=== PATIENT | male | born 1955 | race Caucasian/White ===

== ENCOUNTER 2016-11-13 11:55 | Inpatient (IN) | payer OTHER ==
[~2016-11-13] VITALS: Ht 198.1 cm; Wt 126.6 kg
[2016-11-13] VITALS (8 sets, daily range): BP systolic 114–142; BP diastolic 69–97; PULSE 77–131; RESP 16–20; TEMP 97.6–98.1; O2SAT 94–100
[~2016-11-13 11:55] MED LIST: ASPI81 PO; METF500 PO; METO50CR PO; TAB-TAB PO; WARF5TAB PO
[2016-11-13] MEDS ORDERED: DILTIAZEM HCL 25 MG/5 ML VIAL IV ONE (12:30)
[2016-11-13] MEDS ORDERED: SODIUM CHLORIDE 0.9% FLUSH 10 ML FLUSH IVF PRN (12:30)
--- NOTE | 2016-11-13 12:44 | PD ---
HPI Chief Complaint: Skin Problem Time Seen by Provider: 12:37 Travel History International Travel<30 days: No Contact w/Intl Traveler<30days: No Traveled to known affect area: No History of Present Illness HPI Patient is a 60-year-old male presenting to emergency Department for evaluation of possible osteomyelitis. Patient was sent by Dr. Boykin who has been following him due to infection to the right second toe, there is a concern for osteomyelitis and patient states Lucretia wanted an MRI. Over the weekend patient has had increased swelling and streaking up the dorsal aspect of the right foot with swelling to the ankle. Additionally patient was sent to have a defibrillator placed tomorrow with Dr. Boone. Patient denies any fever, chills, chest pain, shortness of breath. He has a history of atrial fibrillation, congestive heart failure, type 2 diabetes, neuropathy, GERD. He was on Coumadin but has been off for several days due to the upcoming surgery. He continues to take a baby aspirin. PFSH Past Medical History Hx Anticoagulant Therapy: Yes (Coumadin) Atrial Fibrillation: Yes Congestive Heart Failure: Yes Diabetes: Yes Patient Takes Glucophage: Yes Diminished Hearing: No GERD: Yes Hypertension: Yes Neurologic: Yes (peripheral neuropathy) Past Surgical History Abdominal Surgery: Yes (LEFT INGUINAL & UMBLICIAL HERNIA REPAIRS) Genitourinary Surgery: Yes (GROWTH ON RIGHT KIDNEY REMOVED) Social History Alcohol Use: Yes (OCC) Tobacco Use: Yes (CIGARS 0NCE IN AWHILE) Substance Use: No Allergies-Medications (Allergen,Severity, Reaction): Coded Allergies: No Known Allergies (Verified , 11/13/16) Reported Meds & Prescriptions Reported Meds & Active Scripts Active Reported Coumadin (Warfarin) 10 Mg Tab 10 Mg PO SUFR Coumadin (Warfarin) 7.5 Mg Tab 7.5 Mg PO MOTUWETHSA Omeprazole 10 Mg Cap 10 Mg PO DIRECTED PRN Isosorbide Mononitrate ER (Isosorbide Mononitrate) 30 Mg Liliana 30 Mg PO DAILY Entresto (Sacubitril-Valsartan) 24-26 Mg Tab 1 Tab PO BID Precose (Acarbose) 50 Mg Tab 50 Mg PO TID Take with first bite of meal. Glimepiride 4 Mg Tab 4 Mg PO DAILY Take with breakfast or first main meal Metformin (Metformin HCl) 500 Mg Tab 500 Mg PO TIDPC With meals Lasix (Furosemide) 20 Mg Tab 20 Mg PO TID Amiodarone (Amiodarone HCl) 200 Mg Tab 200 Mg PO DAILY Coreg (Carvedilol) 6.25 Mg Tab 6.25 Mg PO BID Aspirin 81 Mg Chew 81 Mg CHEW DAILY Review of Systems Except as stated in HPI: all other systems reviewed are Neg General / Constitutional: No: Fever, Chills HENT: No: Headaches Cardiovascular: Positive: Irregular Rhythm, Tachycardia, Edema, No: Chest Pain or Discomfort Respiratory: No: Shortness of Breath Gastrointestinal: No: Nausea, Vomiting, Abdominal Pain Musculoskeletal: Positive: Edema, Pain (right second toe) Skin: Positive Change in Pigmentation, Positive Lesions Neurologic: No: Weakness, Focal Abnormalities Physical Exam Narrative GENERAL: Well-developed, well-nourished, alert male. Resting comfortably in no acute distress. SKIN: Warm and dry. 2 cm ulceration to the right second toe pad, streaking to the dorsal aspect of the right foot 9 cm. Mild erythema noted to the medial aspect of the right ankle. HEAD: Atraumatic. Normocephalic. EYES: Pupils equal and round. No scleral icterus. No injection or drainage. ENT: No nasal bleeding or discharge. Mucous membranes pink and moist. NECK: Trachea midline. No JVD. CARDIOVASCULAR: Tachycardic, irregularly irregular RESPIRATORY: No accessory muscle use. Clear to auscultation. Breath sounds equal bilaterally. GASTROINTESTINAL: Abdomen soft, non-tender, nondistended. Hepatic and splenic margins not palpable. MUSCULOSKELETAL: Left extremity without clubbing, cyanosis, or edema. No obvious deformities. Right foot with trace edema to the dorsal aspect and ankle. 2+ dorsalis pedis pulses bilaterally. Right second toe does not ba. NEUROLOGICAL: Awake and alert. No obvious cranial nerve deficits. Motor grossly within normal limits. Five out of 5 muscle strength in the arms and legs. Normal speech. PSYCHIATRIC: Appropriate mood and affect; insight and judgment normal. Data Data Last Documented VS Vital Signs Date Time Temp Pulse Resp B/P Pulse Ox O2 Delivery O2 Flow Rate FiO2 11/13/16 12:59 77 16 126/85 96 Room Air 11/13/16 11:57 98.1 Orders Complete Blood Count With Diff (11/13/16 12:22) Comprehensive Metabolic Panel (11/13/16 12:22) B-Type Natriuretic Peptide (11/13/16 12:22) Prothrombin Time / Inr (Pt) (11/13/16 12:22) Magnesium (Mg) (11/13/16 12:22) Ckmb (Isoenzyme) Profile (11/13/16 12:22) Troponin I (11/13/16 12:22) Blood Culture (11/13/16 12:22) Iv Access Insert/Monitor (11/13/16 12:22) Electrocardiogram (11/13/16 12:22) Ecg Monitoring (11/13/16 12:22) Oximetry (11/13/16 12:22) Oxygen Administration (11/13/16 12:22) Sodium Chloride 0.9% Flush (Ns Flush) (11/13/16 12:30) Wound Culture And Gram Stain (11/13/16 12:22) Diltiazem Inj (Cardizem Inj) (11/13/16 12:30) C-Reactive Protein (Crp) (11/13/16 12:22) Westergren Sedimentation Rate (11/13/16 12:22) Mri Foot W&W/O Contrast (11/13/16 ) Vancomycin Inj (Vancomycin Inj) (11/13/16 14:30) Piperacil-Tazo 3.375 Gm Premix (Zosyn 3. (11/13/16 14:30) Gadodiamide Pf Inj (Omniscan Pf Inj) (11/13/16 14:36) Insulin Aspart Supplemtl Scale (Novolog (11/13/16 16:00) Admit Order (Ed Use Only) (11/13/16 14:48) Admit To Inpatient (11/13/16 ) Code Status (11/13/16 14:46) Vital Signs (Adult) Q4H (11/13/16 14:46) Activity Oob With Assistance (11/13/16 14:46) Diet 1800 Ada Cons Carb (11/13/16 Dinner) Sodium Chloride 0.9% Flush (Ns Flush) (11/13/16 15:00) Sodium Chloride 0.9% Flush (Ns Flush) (11/13/16 21:00) Acetaminophen (Tylenol) (11/13/16 15:00) Temazepam (Restoril) (11/13/16 15:00) Basic Metabolic Panel (Bmp) (11/14/16 06:00) Complete Blood Count With Diff (11/14/16 06:00) Chest, Single Ap (11/13/16 14:46) Electrocardiogram (11/13/16 14:46) Pt Request For Service (11/13/16 14:46) Scd Bilateral/Knee High ABEL.BID (11/13/16 14:46) Naloxone Inj (Narcan Inj) (11/13/16 15:00) Magnesium Hydroxide Liq (Milk Of Magnesi (11/13/16 15:00) Inpatient Certification (11/13/16 ) Labs Laboratory Tests Test 11/13/16 12:40 White Blood Count 6.5 TH/MM3 Red Blood Count 4.52 MIL/MM3 Hemoglobin 13.2 GM/DL Hematocrit 37.7 % Mean Corpuscular Volume 83.3 FL Mean Corpuscular Hemoglobin 29.3 PG Mean Corpuscular Hemoglobin 35.1 % Concent Red Cell Distribution Width 13.4 % Platelet Count 148 TH/MM3 Mean Platelet Volume 7.6 FL Neutrophils (%) (Auto) 65.3 % Lymphocytes (%) (Auto) 21.8 % Monocytes (%) (Auto) 7.7 % Eosinophils (%) (Auto) 4.4 % Basophils (%) (Auto) 0.8 % Neutrophils # (Auto) 4.2 TH/MM3 Lymphocytes # (Auto) 1.4 TH/MM3 Monocytes # (Auto) 0.5 TH/MM3 Eosinophils # (Auto) 0.3 TH/MM3 Basophils # (Auto) 0.1 TH/MM3 CBC Comment DIFF FINAL Differential Comment Erythrocyte Sedimentation Rate 19 mm/hr Prothrombin Time 29.1 SEC Prothromb Time International 2.5 RATIO Ratio Sodium Level 137 MEQ/L Potassium Level 3.9 MEQ/L Chloride Level 105 MEQ/L Carbon Dioxide Level 25.2 MEQ/L Anion Gap 7 MEQ/L Blood Urea Nitrogen 35 MG/DL Creatinine 1.08 MG/DL Estimat Glomerular Filtration 70 ML/MIN Rate Random Glucose 204 MG/DL Calcium Level 8.8 MG/DL Magnesium Level 1.6 MG/DL Total Bilirubin 0.7 MG/DL Aspartate Amino Transf 15 U/L (AST/SGOT) Alanine Aminotransferase 15 U/L (ALT/SGPT) Alkaline Phosphatase 73 U/L Total Creatine Kinase 63 U/L Troponin I 0.05 NG/ML C-Reactive Protein 1.10 MG/DL B-Type Natriuretic Peptide 142 PG/ML Total Protein 6.8 GM/DL Albumin 3.4 GM/DL MDM Medical Decision Making Medical Screen Exam Complete: Yes Emergency Medical Condition: Yes Medical Record Reviewed: Yes Interpretation(s) Laboratory Tests Test 11/13/16 12:40 White Blood Count 6.5 TH/MM3 Red Blood Count 4.52 MIL/MM3 Hemoglobin 13.2 GM/DL Hematocrit 37.7 % Mean Corpuscular Volume 83.3 FL Mean Corpuscular Hemoglobin 29.3 PG Mean Corpuscular Hemoglobin 35.1 % Concent Red Cell Distribution Width 13.4 % Platelet Count 148 TH/MM3 Mean Platelet Volume 7.6 FL Neutrophils (%) (Auto) 65.3 % Lymphocytes (%) (Auto) 21.8 % Monocytes (%) (Auto) 7.7 % Eosinophils (%) (Auto) 4.4 % Basophils (%) (Auto) 0.8 % Neutrophils # (Auto) 4.2 TH/MM3 Lymphocytes # (Auto) 1.4 TH/MM3 Monocytes # (Auto) 0.5 TH/MM3 Eosinophils # (Auto) 0.3 TH/MM3 Basophils # (Auto) 0.1 TH/MM3 CBC Comment DIFF FINAL Differential Comment Erythrocyte Sedimentation Rate 19 mm/hr Prothrombin Time 29.1 SEC Prothromb Time International 2.5 RATIO Ratio Sodium Level 137 MEQ/L Potassium Level 3.9 MEQ/L Chloride Level 105 MEQ/L Carbon Dioxide Level 25.2 MEQ/L Anion Gap 7 MEQ/L Blood Urea Nitrogen 35 MG/DL Creatinine 1.08 MG/DL Estimat Glomerular Filtration 70 ML/MIN Rate Random Glucose 204 MG/DL Calcium Level 8.8 MG/DL Magnesium Level 1.6 MG/DL Total Bilirubin 0.7 MG/DL Aspartate Amino Transf 15 U/L (AST/SGOT) Alanine Aminotransferase 15 U/L (ALT/SGPT) Alkaline Phosphatase 73 U/L Total Creatine Kinase 63 U/L Troponin I 0.05 NG/ML C-Reactive Protein 1.10 MG/DL B-Type Natriuretic Peptide 142 PG/ML Total Protein 6.8 GM/DL Albumin 3.4 GM/DL Vital Signs Date Time Temp Pulse Resp B/P Pulse Ox O2 Delivery O2 Flow Rate FiO2 11/13/16 11:57 98.1 131 16 114/81 97 Room Air Differential Diagnosis Sepsis versus osteomyelitis versus congestive heart failure versus A. fib with RVR versus metabolic abnormality versus other Narrative Course Patient is a 60-year-old male presenting on the advice of his recruitment coordinator for evaluation of possible osteomyelitis in the right second toe. Additionally patient is in A. fib with RVR with a rate of 123. Labs and imaging ordered and pending, Cardizem 20 mg IV 1 dose ordered. Rate was controlled after 1 dose of IV Cardizem. CBC is unremarkable on the sedimentation rate is 19 CRP 1.10, BNP 142 Troponin 0.05 CMP is otherwise unremarkable. MRI is pending, for healthcare patient for admission. Dr. Boykin requested patient receive vancomycin and Zosyn, orders placed. [facility] paged for admission. Dr. Sunshine accepted admit. He also spoke with Dr. Boykin as well as radiologist. Pt has confirmed Osteomyelitis. Admit orders placed. Diagnosis Primary Impression: Osteomyelitis Qualified Code: M86.9 - Osteomyelitis of other site, unspecified type Additional Impressions: Atrial fibrillation with RVR Diabetic ulcer of toe Qualified Code: E11.621 - Diabetic ulcer of toe of right foot associated with type 2 diabetes mellitus, unspecified ulcer stage Diabetes Qualified Code: E11.8 - Type 2 diabetes mellitus with complication, unspecified exterminator helper termite insulin use status HTN (hypertension) Qualified Code: I10 - Essential hypertension Admitting Information Admitting Physician Requests: Admit Condition: Stable Randee Griffith Nov 13, 2016 12:44
[2016-11-13 13:00] LABS: AUTOMATED NEUTROPHIL # 4.2 TH/MM3 (1.8-7.7); BASOPHIL # 0.1 TH/MM3 (0-0.2); BASOPHIL % 0.8 % (0.0-2.0); EOSINOPHIL # 0.3 TH/MM3 (0-0.4); EOSINOPHIL % 4.4 % (0.0-4.0); HEMATOCRIT 37.7 % (39.0-51.0); HEMO FLAGS DIFF FINAL; LYMPH % 21.8 % (9.0-44.0); LYMPHOCYTE # 1.4 TH/MM3 (1.0-4.8); MEAN CELL VOLUME 83.3 FL (80.0-100.0); MEAN CORPUSCULAR HEMOGLOBIN 29.3 PG (27.0-34.0); MEAN CORPUSCULAR HGB CONC 35.1 % (32.0-36.0); MONO % 7.7 % (0.0-8.0); NEUT % 65.3 % (16.0-70.0); PLATELET COUNT 148 TH/MM3 (150-450); RED BLOOD COUNT 4.52 MIL/MM3 (4.50-5.90); RED CELL DISTRIBUTION WIDTH 13.4 % (11.6-17.2); WHITE BLOOD COUNT 6.5 TH/MM3 (4.0-11.0)
[2016-11-13] MEDS ORDERED: CARV6.25 PO (13:06)
[2016-11-13] MEDS ORDERED: GLIM4TAB PO (13:06)
[2016-11-13] MEDS ORDERED: METF500T PO (13:06)
[2016-11-13] MEDS ORDERED: COUM7.5T PO (13:06)
[2016-11-13] MEDS ORDERED: PREC50TA PO (13:06)
[2016-11-13] MEDS ORDERED: AMIO200T PO (13:06)
[2016-11-13] MEDS ORDERED: OMEP10CA PO (13:06)
[2016-11-13] MEDS ORDERED: ASPI81CH CHEW (13:06)
[2016-11-13] MEDS ORDERED: ISOS30TA3 PO (13:06)
[2016-11-13] MEDS ORDERED: COUM10TA PO (13:06)
[2016-11-13] MEDS ORDERED: SACU1TAB PO (13:06)
[2016-11-13] MEDS ORDERED: FURO1TAB62 PO (13:06)
[2016-11-13 13:08] LABS: INTERNATIONAL NORMALIZED RATIO 2.5 RATIO; PROTHROMBIN TIME - PATIENT 29.1 SEC (9.8-11.6)
[2016-11-13 13:18] LABS: AST (GOT) 15 U/L (15-37); BICARBONATE 25.2 MEQ/L (21.0-32.0); BLOOD UREA NITROGEN 35 MG/DL (7-18); CHLORIDE 105 MEQ/L (98-107); GLOMERULAR FILTRATION RATE 70 ML/MIN (>89); MAGNESIUM 1.6 MG/DL (1.5-2.5); POTASSIUM 3.9 MEQ/L (3.5-5.1); SODIUM (NA) 137 MEQ/L (136-145)
[2016-11-13 13:19] LABS: ALT (GPT) 15 U/L (12-78); ANION GAP 7 MEQ/L (5-15)
[2016-11-13 13:22] LABS: ALKALINE PHOSPHATASE 73 U/L (45-117); TOTAL BILIRUBIN ADULT 0.7 MG/DL (0.2-1.0)
[2016-11-13 13:23] LABS: CREATINE KINASE 63 U/L (39-308)
[2016-11-13] MEDS ORDERED: VANCOMYCIN INJ 1,000 MG in SODIUM CHLOR 0.9% 250 ML INJ 250 ML IV ONE (14:30)
[2016-11-13] MEDS ORDERED: PIPERACIL-TAZO 3.375 GM PREMIX 50 ML IV ONE (14:30)
[2016-11-13] MEDS ORDERED: GADODIAMIDE PF 287 MG/ML 5 ML VIAL (for RAD MRI) IV ONE (14:36)
[2016-11-13] MEDS ORDERED: NALOXONE HCL 0.4 MG/ML AMP IV PRN (15:00)
[2016-11-13] MEDS ORDERED: MAGNESIUM HYDROXIDE SUSP 30 ML CUP PO PRN (15:00)
[2016-11-13] MEDS ORDERED: SODIUM CHLORIDE 0.9% FLUSH 10 ML FLUSH IV FLUSH PRN (15:00)
[2016-11-13] MEDS ORDERED: ACETAMINOPHEN 325 MG TAB PO PRN (15:00)
--- NOTE | 2016-11-13 15:16 | RADRPT ---
EXAM DATE/TIME: 11/13/2016 14:52 [facility] COMPARISON: No previous studies available for comparison. INDICATIONS : Osteomyelitis. CONTRAST: 25 cc Omniscan (gadodiamide) IV MEDICAL HISTORY : Diabetes mellitus type 2. CHF SURGICAL HISTORY : Hernia repair, knee surgery, cardiac ablation ENCOUNTER: Subsequent ACUITY: 2 weeks PAIN SCORE: 3/10 LOCATION: Right second digit TECHNIQUE: Multiplanar, multisequence MRI examination was performed without contrast and after th e intravenous administration of gadolinium. FINDINGS: MRI of the right foot was performed with and without contrast. There is abnormal marro w signal within the second distal phalangeal bone. It is slightly decreased in signal on the T1 image s. It is quite edematous on the IR. There is marked soft tissue enhancement around the entire second toe and the plantar aspect of the foot. There is some arthritic change involving the first metatarsal head. There is susceptibility artifact between the first and second metatarsal heads related to previous surgery. What I see of the flexor tendons are intact. CONCLUSION: Abnormal marrow within the second distal phalangeal bone with some edema on the IR im ages and some marrow replacement on the T1 image suspicious for osteomyelitis. Volodymyr Degroot MD on November 13, 2016 at 15:07 Board Certified Radiologist. This report was verified electronically.
[2016-11-13] MEDS ORDERED: AMIODARONE 200 MG TAB PO ONE (15:30)
--- NOTE | 2016-11-13 16:01 | RADRPT ---
EXAM DATE/TIME: 11/13/2016 15:32 [facility] COMPARISON: No previous studies available for comparison. INDICATIONS : Foot infection. MEDICAL HISTORY : diabetes. SURGICAL HISTORY : None. ENCOUNTER: Initial ACUITY: 1 day PAIN SCORE: 0/10 LOCATION: Bilateral chest FINDINGS: A single view of the chest demonstrates the lungs to be symmetrically aerated without evidence of mas s, infiltrate or effusion. The cardiomediastinal contours are unremarkable. Osseous structures are intact. CONCLUSION: Normal examination. Volodymyr Degroot MD on November 13, 2016 at 15:59 Board Certified Radiologist. This report was verified electronically.
[2016-11-13] MEDS: INSULIN ASPART SUPPLEMENTAL SCALE SQ SCH ×2 (16:25→22:48)
[2016-11-13] MEDS: WARFARIN SOD 7.5 MG TAB PO SCH (18:02)
--- NOTE | 2016-11-13 18:25 | MB ---
cc: SANTHOSH MENDOZA MD DATE OF CONSULTATION 11/13/[address] Sunshine REASON FOR CONSULTATION Diabetic foot ulcer. HISTORY OF PRESENT ILLNESS This is a 60-year-old white male who has diabetes mellitus. The patient developed an ulcer at the bottom of his right second toe approximately two weeks ago. He was taking care of it at home with tea tree oil and later on was given a cream as well to use on the wound. He noted a red streak at the base of the second toe and the second toe was becoming more red. He was evaluated by the outpatient master esthetician and sent to the emergency department. He denied fever, chills, nausea or vomiting. The workup included MRI of the foot and it shows abnormal marrow within the second distal phalangeal bone with some edema suspicious for osteomyelitis. Blood cultures were taken. A wound culture was taken from the second toe. The patient is afebrile and white blood cell count is normal. He has been started on IV antibiotics. This consultation is requested for infection management. PAST MEDICAL HISTORY 1. Diabetes mellitus diagnosed three years ago, 2. Atrial fibrillation 3. Congestive heart failure, 4. Gastroesophageal reflux disease, 5. Hypertension, 6. Peripheral neuropathy, 7. History of left inguinal and umbilical hernia repair 8. History of removal of a growth on the right kidney. ALLERGIES NO KNOWN DRUG ALLERGIES. MEDICATIONS 1. Vancomycin. 2. Piperacillin tazobactam. 3. Aspirin. 4. Cordarone. 5. Coumadin 6. Coreg 7. Entresto SOCIAL HISTORY The patient is . Occasional cigar. Rare alcohol. No illicit drugs. FAMILY HISTORY Noncontributory. REVIEW OF SYSTEMS Negative on 10-point review. PHYSICAL EXAMINATION GENERAL: This is a well-developed male who is in no acute distress. He is awake, alert and oriented. VITAL SIGNS: Temperature 98.1, BP 159/92, respirations 20, heart rate 82. HEENT: Head atraumatic. Extraocular movements grossly intact, pupils reactive to light. No icterus. Oropharynx no visible lesions. NECK: Supple without adenopathy. LUNGS: Clear breath sounds HEART: Irregular rate and rhythm. No murmurs, rubs or gallops. ABDOMEN: Bowel sounds present, soft, nontender. RECTAL: Not performed. EXTREMITIES: The right great toe is completely reddened and tender and warm. There is an ulceration at the tuft of the toe and a shallow ulceration at the dorsal aspect of the toe. There is a streak of redness at the base of the second toe to about mid foot at the dorsal aspect. The second right toe and also the base of the second and third toes at the dorsum is tender on palpation and there is also some tenderness at the base of the second toe at the plantar aspect. The other extremities have no clubbing, cyanosis or edema. SKIN: No rash. NEUROLOGIC: Nonfocal. PSYCHIATRIC: Patient is pleasant, calm and cooperative. LABORATORY DATA WBC 6.5, platelets 148, hemoglobin 13.2, sedimentation rate 19, creatinine 1.08, BUN 35, sodium 137. IMPRESSION 1. Osteomyelitis of the right second toe. 2. Cellulitis of the right second toe. 3. Diabetes mellitus. RECOMMENDATIONS 1. Continue vancomycin 2. Continue piperacillin/tazobactam 3. Monitor wound culture 4. Surgical intervention to be determined by podiatry. Thank you this consultation. The patient's progress will be followed and further recommendations will be made on followup. Santhosh Mendoza MD FD/ /5:32 PM /6:12 PM MTDChante
[2016-11-13] MEDS: FUROSEMIDE 20 MG TAB PO SCH (18:49)
--- NOTE | 2016-11-13 19:42 | HHI.HP ---
HPI Service [facility] Hospitalists Primary Care Physician Darryl Kaufman, DO Admission Diagnosis A. fib with RVR, rule out osteomyelitis, diabetic ulcer Chief Complaint: infection toe Travel History International Travel<30 Days: No Contact w/Intl Traveler <30 Da: No Traveled to Known Affected Are: No History of Present Illness Patient is a 60-year-old male presenting to emergency Department for evaluation of possible osteomyelitis. Patient was sent by Dr. Boykin who has been following him due to infection to the right second toe, there is a concern for osteomyelitis and patient states Lucretia wanted an MRI. Over the weekend patient has had increased swelling and streaking up the dorsal aspect of the right foot with swelling to the ankle. Additionally patient was sent to have a defibrillator placed tomorrow with Dr. Boone. Patient denies any fever, chills, chest pain, shortness of breath. He has a history of atrial fibrillation, congestive heart failure, type 2 diabetes, neuropathy, GERD. He was on Coumadin but has been off for several days due to the upcoming surgery. He continues to take a baby aspirin. Review of Systems Cardiovascular: COMPLAINS OF: Palpitations Musculoskeletal: COMPLAINS OF: Neck pain Other toe infection Past Family Social History Past Medical History hypertension,dm,atrial fib,gerd Past Surgical History hernia repair Reported Medications Coumadin (Warfarin) 10 Mg Tab 10 Mg PO SUFR Coumadin (Warfarin) 7.5 Mg Tab 7.5 Mg PO MOTUWETHSA Omeprazole 10 Mg Cap 10 Mg PO DIRECTED PRN Isosorbide Mononitrate ER (Isosorbide Mononitrate) 30 Mg Liliana 30 Mg PO DAILY Entresto (Sacubitril-Valsartan) 24-26 Mg Tab 1 Tab PO BID Precose (Acarbose) 50 Mg Tab 50 Mg PO TID Take with first bite of meal. Glimepiride 4 Mg Tab 4 Mg PO DAILY Take with breakfast or first main meal Metformin (Metformin HCl) 500 Mg Tab 500 Mg PO TIDPC With meals Lasix (Furosemide) 20 Mg Tab 20 Mg PO TID Amiodarone (Amiodarone HCl) 200 Mg Tab 200 Mg PO DAILY Coreg (Carvedilol) 6.25 Mg Tab 6.25 Mg PO BID Aspirin 81 Mg Chew 81 Mg CHEW DAILY Allergies: Coded Allergies: No Known Allergies (Verified , 7/18/17) Social History occ etoh,smokes rare Physical Exam Vital Signs Vital Signs Date Time Temp Pulse Resp B/P Pulse Ox O2 Delivery O2 Flow Rate FiO2 11/13/16 18:49 104 20 141/88 100 Room Air 11/13/16 15:21 85 20 116/69 97 Room Air 11/13/16 12:59 77 16 126/85 96 Room Air 11/13/16 12:55 20 94 Room Air 11/13/16 11:57 98.1 131 16 114/81 97 Room Air Physical Exam GENERAL: This is a well-nourished, well-developed patient, in no apparent distress. SKIN: No rashes, ecchymoses or lesions. Cool and dry. HEAD: Atraumatic. Normocephalic. No temporal or scalp tenderness. EYES: Pupils equal round and reactive. Extraocular motions intact. No scleral icterus. No injection or drainage. ENT: Nose without bleeding, purulent drainage or septal hematoma. Throat without erythema, tonsillar hypertrophy or exudate. Uvula midline. Airway patent. NECK: Trachea midline. No JVD or lymphadenopathy. Supple, nontender, no meningeal signs. CARDIOVASCULAR: Regular rate and rhythm without murmurs, gallops, or rubs. RESPIRATORY: Clear to auscultation. Breath sounds equal bilaterally. No wheezes , rales, or rhonchi. GASTROINTESTINAL: Abdomen soft, non-tender, nondistended. No hepato-splenomegaly , or palpable masses. No guarding. MUSCULOSKELETAL: Extremities without clubbing, cyanosis, ote red swollen tender. Negative Homans sign bilaterally. NEUROLOGICAL: Awake and alert. Cranial nerves II through XII intact. Motor and sensory grossly within normal limits. Five out of 5 muscle strength in all muscle groups. Normal speech. Laboratory Laboratory Tests Test 11/13/16 12:40 White Blood Count 6.5 Red Blood Count 4.52 Hemoglobin 13.2 Hematocrit 37.7 Mean Corpuscular Volume 83.3 Mean Corpuscular Hemoglobin 29.3 Mean Corpuscular Hemoglobin 35.1 Concent Red Cell Distribution Width 13.4 Platelet Count 148 Mean Platelet Volume 7.6 Neutrophils (%) (Auto) 65.3 Lymphocytes (%) (Auto) 21.8 Monocytes (%) (Auto) 7.7 Eosinophils (%) (Auto) 4.4 Basophils (%) (Auto) 0.8 Neutrophils # (Auto) 4.2 Lymphocytes # (Auto) 1.4 Monocytes # (Auto) 0.5 Eosinophils # (Auto) 0.3 Basophils # (Auto) 0.1 CBC Comment DIFF FINAL Differential Comment Erythrocyte Sedimentation Rate 19 Prothrombin Time 29.1 Prothromb Time International 2.5 Ratio Sodium Level 137 Potassium Level 3.9 Chloride Level 105 Carbon Dioxide Level 25.2 Anion Gap 7 Blood Urea Nitrogen 35 Creatinine 1.08 Estimat Glomerular Filtration 70 Rate Random Glucose 204 Calcium Level 8.8 Magnesium Level 1.6 Total Bilirubin 0.7 Aspartate Amino Transf 15 (AST/SGOT) Alanine Aminotransferase 15 (ALT/SGPT) Alkaline Phosphatase 73 Total Creatine Kinase 63 Troponin I 0.05 C-Reactive Protein 1.10 B-Type Natriuretic Peptide 142 Total Protein 6.8 Albumin 3.4 Date/Time Procedure Status Source Growth 11/13/16 12:40 Gram Stain - Final Resulted Wound Toe 11/13/16 12:40 Wound Culture Resulted Wound Toe Pending 11/13/16 12:40 Aerobic Blood Culture Received Blood Peripheral Pending 11/13/16 12:40 Anaerobic Blood Culture Received Blood Peripheral Pending Result Diagram: 11/13/16 1240 11/13/16 1240 Imaging Last 24 hours Impressions Chest X-Ray 11/13/16 1446 Signed Impressions: Service Date/Time: Sunday, November 13, 2016 15:32 - CONCLUSION: Normal examination. Volodymyr Degroot MD Foot MRI 11/13/16 0000 Signed Impressions: Service Date/Time: Sunday, November 13, 2016 14:52 - CONCLUSION: Abnormal marrow within the second distal phalangeal bone with some edema on the IR images and some marrow replacement on the T1 image suspicious for osteomyelitis. Volodymyr Degroot MD Course in er started on antibiotics and consult to podiatry and ID Assessment and Plan Problem List: (1) Diabetic ulcer of toe Status: Acute Plan: IV antibiotics as given in er and consult ID (2) Atrial fibrillation with RVR Status: Chronic Plan: continue current meds may be receiving pacemaker (3) Osteomyelitis Status: Acute Plan: osteomyleitis as per mri consult podiatry Assessment and Plan further plan as case develops Code Status full Discussed Condition With patient Physician Certification 2 Midnight Certification Type: Admission for Inpatient Services Order for Inpatient Services The services are ordered in accordance with Medicare regulations or non- Medicare payer requirements, as applicable. In the case of services not specified as inpatient-only, they are appropriately provided as inpatient services in accordance with the 2-midnight benchmark. Estimated LOS (days): 3 3 days is the estimated time the patient will need to remain in the hospital, assuming treatment plan goals are met and no additional complications. Post-Hospital Plan: Not yet determined Problem Qualifiers (1) Diabetic ulcer of toe: Qualified Code: E11.621 - Diabetic ulcer of toe of right foot associated with type 2 diabetes mellitus, unspecified ulcer stage (2) Osteomyelitis: Qualified Code: M86.9 - Osteomyelitis of other site, unspecified type Ang Crowe MD Nov 13, 2016 19:42
[2016-11-13] MEDS: CARVEDILOL 6.25 MG TAB PO SCH (22:19)
[2016-11-13] MEDS: SACUBITRIL/VALSARTAN 24 MG-26 MG TAB PO SCH (22:19)
[2016-11-13] MEDS: PIPERACIL-TAZO 3.375 GM PREMIX 50 ML IV SCH (22:19)
[2016-11-13] MEDS: SODIUM CHLORIDE 0.9% FLUSH 10 ML FLUSH IV FLUSH SCH (22:43)
[2016-11-14] VITALS (7 sets, daily range): BP systolic 129–151; BP diastolic 69–90; PULSE 87–129; RESP 18–20; TEMP 96.5–98; O2SAT 94–98
[2016-11-14] MEDS: PIPERACIL-TAZO 3.375 GM PREMIX 50 ML IV SCH ×2 (03:05→11:18)
[2016-11-14] MEDS: VANCOMYCIN INJ 1,000 MG in SODIUM CHLOR 0.9% 250 ML INJ 250 ML IV SCH ×2 (03:05→12:30)
[2016-11-14] MEDS: INSULIN ASPART SUPPLEMENTAL SCALE SQ SCH ×4 (06:15→21:31)
[2016-11-14] MEDS: ISOSORBIDE MONONITRATE 30 MG TAB PO SCH (06:15)
[2016-11-14 06:55] LABS: AUTOMATED NEUTROPHIL # 3.6 TH/MM3 (1.8-7.7); BASOPHIL % 0.6 % (0.0-2.0); EOSINOPHIL # 0.3 TH/MM3 (0-0.4); EOSINOPHIL % 5.3 % (0.0-4.0); HEMATOCRIT 39.1 % (39.0-51.0); HEMO FLAGS DIFF FINAL; LYMPH % 25.4 % (9.0-44.0); LYMPHOCYTE # 1.5 TH/MM3 (1.0-4.8); MEAN CELL VOLUME 83.4 FL (80.0-100.0); MEAN CORPUSCULAR HEMOGLOBIN 29.3 PG (27.0-34.0); MEAN CORPUSCULAR HGB CONC 35.1 % (32.0-36.0); MONO % 8.6 % (0.0-8.0); NEUT % 60.1 % (16.0-70.0); PLATELET COUNT 142 TH/MM3 (150-450); RED BLOOD COUNT 4.69 MIL/MM3 (4.50-5.90); RED CELL DISTRIBUTION WIDTH 13.7 % (11.6-17.2); WHITE BLOOD COUNT 5.9 TH/MM3 (4.0-11.0)
[2016-11-14 07:04] LABS: INTERNATIONAL NORMALIZED RATIO 2.4 RATIO; PROTHROMBIN TIME - PATIENT 28.1 SEC (9.8-11.6)
[2016-11-14 07:27] LABS: BICARBONATE 23.9 MEQ/L (21.0-32.0); POTASSIUM 3.7 MEQ/L (3.5-5.1)
--- NOTE | 2016-11-14 07:31 | MB ---
cc: MARIPOSA POOL DPM DATE OF CONSULTATION 11/14/2016 REASON FOR CONSULTATION Right second digit diabetic ulcer, possible osteomyelitis. HISTORY OF PRESENT ILLNESS This is a 60-year-old male who I saw yesterday for the first time in my office. He had red streaking on the top of his foot and a full-thickness ulcer of the right second digit. He was scheduled to have an AICD implanted by Dr. Boone actually today, the date of consultation. However, this was cancelled due to the active infection. Currently I am seeing the patient bedside. He has been seen by Infectious Disease and he understands he has a severe, deep infection of the digit. He is resting comfortably. He did not sleep well last night but he is having slight decreased pain, no active chest pain. PAST MEDICAL HISTORY 1. Positive for hypertension. 2. Diabetes. 3. Atrial fibrillation. 4. Gastroesophageal reflux disease. 5. He reports a history of CHF. He has a salt-limited diet. He has been seeing Dr. Boone, Cardiology, who reports they are unsure as to why he is having the CHF event, but the plan was for an AICD if the patient's heart went into an [place] event. REPORTED OUTPATIENT MEDICATIONS 1. Coumadin. 2. Omeprazole. 3. Isosorbide mononitrate. 4. Etresto. 5. Precos. 6. Glimepiride. 7. Metformin. 8. Lasix. 9. Amiodarone. 10. Coreg. 11. Aspirin. ALLERGIES No known drug allergies listed. INPATIENT MEDICATIONS Reviewed. He is receiving vancomycin and Zosyn. PHYSICAL EXAMINATION VITAL SIGNS: Temperature is 96.5, pulse rate 87, respiratory rate 18, blood pressure 129/89. He is sating 94% on room air. GENERAL: This is an alert and oriented gentleman seen bedside exhibiting nonlabored respirations. EXTREMITIES: The right lower extremity is examined. There is noted to be a full-thickness ulceration of the distal aspect of the right second digit that probes to deep fat and possible early periosteum of the distal phalanx. There is noted to be redness of the entire digit with swelling. There is a small cellulitic line on the dorsal aspect of the digit coursing up to the midfoot. There is no crepitus, soft tissue emphysema, no odor, no signs of gas gangrene. Overall the digit still appears to be viable with capillary fill time beyond the borders of the ulcer. The remaining digits 1, 3, 4 and 5 are without any lesion. There is noted to be a slight hammertoe contracture of the right second digit. Pedal pulses are fully palpable, dorsalis pedis and posterior tibialis. Sensation is decreased to light touch distal to the forefoot, but intact proximal to the patient's ankle. There is good muscle strength. The left lower extremity is free from any pathology. It appears to be vascularly intact with only minimal signs of peripheral neuropathy. LABORATORY FINDINGS White blood cells 6.5, hemoglobin/hematocrit 13 and 37, platelet count is 148, ESR is 19. Chem-7 - Sodium 137, potassium 3.9, chloride 105, CO2 25.2, BUN is 35, creatinine 1.08, random glucose is 204. BMP is 142. Coagulation profile - PT is 29.1, INR is 2.5. MICROBIAL FINDINGS - Gram's stain and blood culture ordered and pending. IMAGING FINDINGS MRI shows there is abnormal signaling within the second distal phalanx of the right second digit suspicious for osteomyelitis. ASSESSMENT AND PLAN Right second digit ulceration, infection, possible osteomyelitis. I reviewed the information at hand with the patient. There is suspected osteomyelitis; however, an only slightly elevated ESR. The patient and I had a long discussion regarding digit salvage versus definitive amputation. The patient wishes to move forward with the AICD as soon as possible. The best way for this to take place is eradication of the infection by a second digit amputation with clean margins. He wishes to discuss this with his . There is a strong chance this is the best procedure for him. He was educated on the possibility of delayed wound healing, need for more surgery at a later date progressing to more resection, possible second ray. The patient appears to have good blood flow and somewhat hyperglycemic control. My recommendation is second digit amputation but I am prepared to go forward with bone biopsy and debridement and 6-8 weeks of IV antibiotics should the patient choose. At this point in time, I will discuss with the patient within the next few hours after he gets a chance to discuss with his ; however, later on today is a plan for surgery either for digit amputation versus bone biopsy and debridement. Being that the patient is only having a digit amputation type procedure, I am fully comfortable proceeding with digit amputation with the patient's INR at 2.5. I have discussed this with Medicine. MARIOLA Don/ANTELMO /6:58 AM /7:19 AM
[2016-11-14] MEDS: ASPIRIN 81 MG CHEW TAB CHEW SCH (08:32)
[2016-11-14] MEDS: CARVEDILOL 6.25 MG TAB PO SCH ×2 (08:32→20:42)
[2016-11-14] MEDS: SODIUM CHLORIDE 0.9% FLUSH 10 ML FLUSH IV FLUSH SCH ×2 (08:32→20:42)
[2016-11-14] MEDS: SACUBITRIL/VALSARTAN 24 MG-26 MG TAB PO SCH ×2 (08:32→20:42)
[2016-11-14] MEDS: FUROSEMIDE 20 MG TAB PO SCH ×3 (08:33→17:10)
[2016-11-14] MEDS: AMIODARONE 200 MG TAB PO SCH (08:34)
--- NOTE | 2016-11-14 09:49 | EKG ---
Date Performed: 11/13/2016 Time Performed: 15:21:20 PTAGE: 60 years EKG: ATRIAL FLUTTER/TACHYCARDIA INFERIOR MYOCARDIAL INFARCTION ABNORMAL ECG PREVIOUS TRACING : 11/13/2016 12.29 DOCTOR: Volodymyr Jerry Interpretating Date/Time 11/14/2016 09:48:54
--- NOTE | 2016-11-14 10:28 | EKG ---
Date Performed: 11/13/2016 Time Performed: 12:29:58 PTAGE: 60 years EKG: ATRIAL FLUTTER/TACHYCARDIA WITH RAPID VENTRICULAR RESPONSE INFERIOR MYOCARDIAL INFARCTION A BNORMAL ECG INTERPRETATION BASED ON A DEFAULT AGE OF 40 YEARS PREVIOUS TRACING : 08/26/2015 10.11 DOCTOR: Volodymyr Jerry Interpretating Date/Time 11/14/2016 10:26:40
--- NOTE | 2016-11-14 16:23 | HHI.IDPN ---
Note Infectious Disease Note Patient feels okay. Has no complaints. Pain 3/10 scale in r. foot. Scheduled for surgery in am. Afebrile. Wound culture has staph aureus. PAST MEDICAL HISTORY 1. Diabetes mellitus diagnosed three years ago, 2. Atrial fibrillation 3. Congestive heart failure, 4. Gastroesophageal reflux disease, 5. Hypertension, 6. Peripheral neuropathy, 7. History of left inguinal and umbilical hernia repair 8. History of removal of a growth on the right kidney. ALLERGIES NO KNOWN DRUG ALLERGIES. ANTIBIOTICS Vancomycin. Piperacillin tazobactam. OBJECTIVE: Vital Signs Date Time Temp Pulse Resp B/P Pulse Ox O2 Delivery O2 Flow Rate FiO2 11/14/16 12:00 97.4 94 18 132/69 98 11/14/16 08:00 97.9 94 18 132/69 98 11/14/16 05:00 96.5 87 18 129/89 94 11/14/16 00:00 97.4 95 20 136/90 97 11/13/16 23:23 110 11/13/16 22:30 97.6 104 20 138/97 96 11/13/16 22:30 Room Air 11/13/16 19:42 86 16 11/13/16 19:41 87 17 142/89 98 Room Air 11/13/16 18:49 104 20 141/88 100 Room Air Laboratory Tests Test 11/13/16 11/14/16 12:40 05:46 White Blood Count 6.5 TH/MM3 5.9 TH/MM3 Red Blood Count 4.52 MIL/MM3 4.69 MIL/MM3 Hemoglobin 13.2 GM/DL 13.8 GM/DL Hematocrit 37.7 % 39.1 % Mean Corpuscular Volume 83.3 FL 83.4 FL Mean Corpuscular Hemoglobin 29.3 PG 29.3 PG Mean Corpuscular Hemoglobin 35.1 % 35.1 % Concent Red Cell Distribution Width 13.4 % 13.7 % Platelet Count 148 TH/MM3 142 TH/MM3 Mean Platelet Volume 7.6 FL 7.6 FL Neutrophils (%) (Auto) 65.3 % 60.1 % Lymphocytes (%) (Auto) 21.8 % 25.4 % Monocytes (%) (Auto) 7.7 % 8.6 % Eosinophils (%) (Auto) 4.4 % 5.3 % Basophils (%) (Auto) 0.8 % 0.6 % Neutrophils # (Auto) 4.2 TH/MM3 3.6 TH/MM3 Lymphocytes # (Auto) 1.4 TH/MM3 1.5 TH/MM3 Monocytes # (Auto) 0.5 TH/MM3 0.5 TH/MM3 Eosinophils # (Auto) 0.3 TH/MM3 0.3 TH/MM3 Basophils # (Auto) 0.1 TH/MM3 0.0 TH/MM3 CBC Comment DIFF FINAL DIFF FINAL Differential Comment Erythrocyte Sedimentation Rate 19 mm/hr Laboratory Tests Test 11/13/16 11/14/16 12:40 06:40 Sodium Level 137 MEQ/L 141 MEQ/L Potassium Level 3.9 MEQ/L 3.7 MEQ/L Chloride Level 105 MEQ/L 106 MEQ/L Carbon Dioxide Level 25.2 MEQ/L 23.9 MEQ/L Anion Gap 7 MEQ/L 11 MEQ/L Blood Urea Nitrogen 35 MG/DL 20 MG/DL Creatinine 1.08 MG/DL 0.83 MG/DL Estimat Glomerular Filtration 70 ML/MIN 94 ML/MIN Rate Random Glucose 204 MG/DL 122 MG/DL Calcium Level 8.8 MG/DL 8.8 MG/DL Magnesium Level 1.6 MG/DL Total Bilirubin 0.7 MG/DL Aspartate Amino Transf 15 U/L (AST/SGOT) Alanine Aminotransferase 15 U/L (ALT/SGPT) Alkaline Phosphatase 73 U/L Total Creatine Kinase 63 U/L Troponin I 0.05 NG/ML C-Reactive Protein 1.10 MG/DL B-Type Natriuretic Peptide 142 PG/ML Total Protein 6.8 GM/DL Albumin 3.4 GM/DL Microbiology Date/Time Procedure Status Source Growth 11/13/16 12:35 Aerobic Blood Culture - Preliminary Resulted Blood Peripheral NO GROWTH IN 1 DAY 11/13/16 12:35 Anaerobic Blood Culture - Preliminary Resulted Blood Peripheral NO GROWTH IN 1 DAY 11/13/16 12:40 Aerobic Blood Culture - Preliminary Resulted Blood Peripheral NO GROWTH IN 1 DAY 11/13/16 12:40 Anaerobic Blood Culture - Preliminary Resulted Blood Peripheral NO GROWTH IN 1 DAY 11/13/16 12:40 Gram Stain - Final Resulted Wound Toe 11/13/16 12:40 Wound Culture - Preliminary Resulted Staphylococcus Aureus PHYSICAL EXAMINATION GENERAL: No acute distress. He is awake, alert and oriented. HEENT: No icterus. Oropharynx no visible lesions. NECK: Supple without adenopathy. LUNGS: Clear breath sounds HEART: Irregular rate and rhythm. No murmurs, rubs or gallops. EXTREMITIES: The right great toe is still erythematous and tender and warm. There is an ulceration at the tuft of the toe and a shallow ulceration at the dorsal aspect of the toe. SKIN: No rash. NEUROLOGIC: Nonfocal. PSYCHIATRIC: Patient is pleasant, calm and cooperative. IMPRESSION 1. Osteomyelitis of the right second toe. 2. Cellulitis of the right second toe. 3. Diabetes mellitus. RECOMMENDATIONS 1. Continue vancomycin 2. Stop piperacillin/tazobactam 3. Monitor wound culture for ID and sens of the staph. Once surgery is performed he will need a short course of antibiotics. Omid Islas MD Nov 14, 2016 16:23 3. Monitor wound culture for ID and sens of the staph. Once surgery is performed he will need a short course of antibiotics. Omid Islas MD Nov 14, 2016 16:23
[2016-11-14] MEDS: WARFARIN SOD 7.5 MG TAB PO SCH (17:10)
--- NOTE | 2016-11-14 18:14 | HHI.PR ---
Subjective Remarks No new complaints. Pt's pain is controlled. Objective Vitals Vital Signs Date Time Temp Pulse Resp B/P Pulse Ox O2 Delivery O2 Flow Rate FiO2 11/14/16 16:00 98.0 90 18 140/70 97 11/14/16 12:00 97.4 94 18 132/69 98 11/14/16 08:00 97.9 94 18 132/69 98 11/14/16 05:00 96.5 87 18 129/89 94 11/14/16 00:00 97.4 95 20 136/90 97 11/13/16 23:23 110 11/13/16 22:30 97.6 104 20 138/97 96 11/13/16 22:30 Room Air 11/13/16 19:42 86 16 11/13/16 19:41 87 17 142/89 98 Room Air 11/13/16 18:49 104 20 141/88 100 Room Air 11/13/16 11/13/16 11/14/16 15:00 23:00 07:00 Intake Total 300 ml Output Total 650 ml 350 ml Balance -350 ml -350 ml Intake Oral 300 ml Output Urine Total 650 ml 350 ml # Voids 1 # Bowel Movements 0 Result Diagram: 11/14/16 0546 11/14/16 0640 Imaging Last 24 hours Impressions Chest X-Ray 11/13/16 1446 Signed Impressions: Service Date/Time: Sunday, November 13, 2016 15:32 - CONCLUSION: Normal examination. Volodymyr Degroot MD Foot MRI 11/13/16 0000 Signed Impressions: Service Date/Time: Sunday, November 13, 2016 14:52 - CONCLUSION: Abnormal marrow within the second distal phalangeal bone with some edema on the IR images and some marrow replacement on the T1 image suspicious for osteomyelitis. Volodymyr Degroot MD Objective Remarks GENERAL: This is a well-nourished, well-developed patient, in no apparent distress. CARDIOVASCULAR: Regular rate and rhythm without murmurs, gallops, or rubs. RESPIRATORY: Clear to auscultation. Breath sounds equal bilaterally. No wheezes , rales, or rhonchi. GASTROINTESTINAL: Abdomen soft, non-tender, nondistended. Normal active bowel sounds NEURO: Alert & Oriented x4 to person, place, time, situation. Moves all ext x4 ext: cellulitis of right second toe A/P Problem List: (1) Diabetic ulcer of toe Status: Acute Plan: - comgmt with ID and podiatry - MRI (11/13/16) --> osteomyelitis right 2nd distal phalanx - vancomycin, zosyn - Case d/w Dr. Boykin (11/14/16) - OR tomorrow (11/14/16) right second toe amputation (2) Osteomyelitis Status: Acute Plan: osteomyleitis as per mri - see above (3) Atrial fibrillation with RVR Status: Chronic Plan: - coumadin, amiodarone, coreg - pt awaiting AICD placement Problem Qualifiers (1) Diabetic ulcer of toe: Qualified Code: E11.621 - Diabetic ulcer of toe of right foot associated with type 2 diabetes mellitus, unspecified ulcer stage (2) Osteomyelitis: Qualified Code: M86.9 - Osteomyelitis of other site, unspecified type Milton Sunshine DO Nov 14, 2016 18:14
[2016-11-14] MEDS: TEMAZEPAM 15 MG CAP PO PRN (20:42)
[2016-11-15] VITALS (8 sets, daily range): BP systolic 111–160; BP diastolic 64–90; PULSE 90–134; RESP 18; TEMP 97.4–97.9; O2SAT 95–98
[2016-11-15] MEDS: VANCOMYCIN INJ 1,000 MG in SODIUM CHLOR 0.9% 250 ML INJ 250 ML IV SCH ×2 (02:45→13:11)
[2016-11-15] MEDS ORDERED: BUPIVACAINE HCL PF 0.5% 30 ML VIAL ONE (06:18)
[2016-11-15 07:04] LABS: INTERNATIONAL NORMALIZED RATIO 2.4 RATIO; PROTHROMBIN TIME - PATIENT 27.1 SEC (9.8-11.6)
[2016-11-15] MEDS ORDERED: NEOMYCIN/POLYMYXIN 1 ML G.U. IRRIGANT IR ONE (07:12)
[2016-11-15] MEDS ORDERED: DO NOT ADM ANY ANTICOAGULANT DRUGS PRN (07:38)
--- NOTE | 2016-11-15 07:38 | HHI.PR ---
Immediate Post Op Note Procedure Date: Nov 15, 2016 Pre Op Diagnosis: right 2nd digit ulcer, hammertoe, OM Post Op Diagnosis: same Surgeon: Master Velez Packer(s): scrub Procedure: right 2nd digit amputation Findings: see op dict, appears to have clear margins Complications: none Specimen(s) removed: rt 2nd digit for path, deep cx for micro Estimated blood loss: less than 10 mL Anesthesia: TIVA, Local Drains: None Fluids: see anethesia Tourniquet time (min at mmHg) 15 min 250 mmhg rt ankle Patient to: PACU Patient Condition: Fair Implant/Devices: SEE IMPLANT LOG (if applicable) Date/Time of Procedure: SEE SURGICAL CARE RECORD Master VelezM Nov 15, 2016 07:38
[2016-11-15] MEDS ORDERED: MIDAZOLAM HCL 2 MG/2 ML VIAL ONE (07:44)
[2016-11-15] MEDS: INSULIN ASPART SUPPLEMENTAL SCALE SQ SCH ×4 (08:00→21:06)
[2016-11-15] MEDS: FUROSEMIDE 20 MG TAB PO SCH ×3 (09:09→17:55)
[2016-11-15] MEDS: SACUBITRIL/VALSARTAN 24 MG-26 MG TAB PO SCH ×2 (09:09→20:19)
[2016-11-15] MEDS: AMIODARONE 200 MG TAB PO SCH (09:09)
[2016-11-15] MEDS: ISOSORBIDE MONONITRATE 30 MG TAB PO SCH (09:09)
[2016-11-15] MEDS: CARVEDILOL 6.25 MG TAB PO SCH ×2 (09:10→20:19)
[2016-11-15] MEDS: ASPIRIN 81 MG CHEW TAB CHEW SCH (09:10)
[2016-11-15] MEDS: SODIUM CHLORIDE 0.9% FLUSH 10 ML FLUSH IV FLUSH SCH ×2 (09:16→20:20)
[2016-11-15] MEDS ORDERED: HYDROmorphone HCL PF 1 MG/ML VIAL IV PRN (10:15)
[2016-11-15] MEDS ORDERED: PROPOFOL 200 MG/20 ML AMP IV ONE (12:00)
--- NOTE | 2016-11-15 12:40 | HHI.PR ---
Subjective Remarks No new complaints. Objective Vitals Vital Signs Date Time Temp Pulse Resp B/P Pulse Ox O2 Delivery O2 Flow Rate FiO2 11/15/16 12:00 97.5 96 18 111/64 95 11/15/16 08:15 104 16 130/80 96 Room Air 11/15/16 08:00 97.4 92 18 125/86 97 11/15/16 08:00 102 16 124/83 99 11/15/16 07:45 108 16 110/71 98 Nasal Cannula 2 11/15/16 07:40 98.4 114 16 100/71 95 Nasal Cannula 2 11/15/16 04:00 97.5 97 18 140/90 97 11/15/16 01:45 Room Air 11/15/16 00:00 97.9 96 18 130/90 95 11/14/16 20:00 97.6 101 18 151/74 97 11/14/16 16:00 98.0 90 18 140/70 97 11/14/16 11/14/16 11/15/16 15:00 23:00 07:00 Intake Total 480 ml 537 ml 0 ml Output Total 950 ml 150 ml Balance -470 ml 387 ml 0 ml Intake Oral 480 ml 240 ml 0 ml IV Total 297 ml Output Urine Total 950 ml 150 ml # Voids 2 # Bowel Movements 0 Result Diagram: 11/14/16 0546 11/14/16 0640 Imaging Last 24 hours Impressions Chest X-Ray 11/13/16 1446 Signed Impressions: Service Date/Time: Sunday, November 13, 2016 15:32 - CONCLUSION: Normal examination. Volodymyr Degroot MD Foot MRI 11/13/16 0000 Signed Impressions: Service Date/Time: Sunday, November 13, 2016 14:52 - CONCLUSION: Abnormal marrow within the second distal phalangeal bone with some edema on the IR images and some marrow replacement on the T1 image suspicious for osteomyelitis. Volodymyr Degroot MD Objective Remarks GENERAL: This is a well-nourished, well-developed patient, in no apparent distress. CARDIOVASCULAR: Regular rate and rhythm without murmurs, gallops, or rubs. RESPIRATORY: Clear to auscultation. Breath sounds equal bilaterally. No wheezes , rales, or rhonchi. GASTROINTESTINAL: Abdomen soft, non-tender, nondistended. Normal active bowel sounds NEURO: Alert & Oriented x4 to person, place, time, situation. Moves all ext x4 ext: right foot wrapped. A/P Problem List: (1) Diabetic ulcer of toe Status: Acute Plan: - comgmt with ID and podiatry - MRI (11/13/16) --> osteomyelitis right 2nd distal phalanx - vancomycin (11/12 - present) - zosyn (11/12 - 11/14) - Case d/w Dr. Boykin (11/14/16) - amputation of right second toe performed by Dr. Boykin (11/15/16) (2) Osteomyelitis Status: Acute Plan: osteomyleitis as per mri - see above (3) Atrial fibrillation with RVR Status: Chronic Plan: - coumadin, amiodarone, coreg - pt awaiting AICD placement Problem Qualifiers (1) Diabetic ulcer of toe: Qualified Code: E11.621 - Diabetic ulcer of toe of right foot associated with type 2 diabetes mellitus, unspecified ulcer stage (2) Osteomyelitis: Qualified Code: M86.9 - Osteomyelitis of other site, unspecified type Milton Sunshine DO Nov 15, 2016 12:39
[2016-11-15] MEDS: ACETAMINOPHEN/HYDROcodone 325 MG/5 MG TAB PO PRN ×2 (13:21→17:58)
[2016-11-15] MEDS: WARFARIN SOD 7.5 MG TAB PO SCH (17:54)
--- NOTE | 2016-11-15 18:19 | HHI.IDPN ---
Note Infectious Disease Note Patient feels okay. No complaints. Afebrile. Wound culture has staph aureus sensitive. PAST MEDICAL HISTORY 1. Diabetes mellitus diagnosed three years ago, 2. Atrial fibrillation 3. Congestive heart failure, 4. Gastroesophageal reflux disease, 5. Hypertension, 6. Peripheral neuropathy, 7. History of left inguinal and umbilical hernia repair 8. History of removal of a growth on the right kidney. ALLERGIES NO KNOWN DRUG ALLERGIES. ANTIBIOTICS Vancomycin. OBJECTIVE: Vital Signs Date Time Temp Pulse Resp B/P Pulse Ox O2 Delivery O2 Flow Rate FiO2 11/15/16 16:31 97.9 90 18 138/85 96 11/15/16 12:00 97.5 96 18 111/64 95 11/15/16 08:15 104 16 130/80 96 Room Air 11/15/16 08:00 97.4 92 18 125/86 97 11/15/16 08:00 102 16 124/83 99 11/15/16 07:45 108 16 110/71 98 Nasal Cannula 2 11/15/16 07:40 98.4 114 16 100/71 95 Nasal Cannula 2 11/15/16 04:00 97.5 97 18 140/90 97 11/15/16 01:45 Room Air 11/15/16 00:00 97.9 96 18 130/90 95 11/14/16 20:00 97.6 101 18 151/74 97 11/14/16 11/14/16 11/15/16 14:59 22:59 06:59 Intake Total 480 ml 537 ml 0 ml Output Total 950 ml 150 ml Balance -470 ml 387 ml 0 ml Intake Oral 480 ml 240 ml 0 ml IV Total 297 ml Output Urine Total 950 ml 150 ml # Voids 2 # Bowel Movements 0 Laboratory Tests Test 11/14/16 05:46 White Blood Count 5.9 TH/MM3 Red Blood Count 4.69 MIL/MM3 Hemoglobin 13.8 GM/DL Hematocrit 39.1 % Mean Corpuscular Volume 83.4 FL Mean Corpuscular Hemoglobin 29.3 PG Mean Corpuscular Hemoglobin 35.1 % Concent Red Cell Distribution Width 13.7 % Platelet Count 142 TH/MM3 Mean Platelet Volume 7.6 FL Neutrophils (%) (Auto) 60.1 % Lymphocytes (%) (Auto) 25.4 % Monocytes (%) (Auto) 8.6 % Eosinophils (%) (Auto) 5.3 % Basophils (%) (Auto) 0.6 % Neutrophils # (Auto) 3.6 TH/MM3 Lymphocytes # (Auto) 1.5 TH/MM3 Monocytes # (Auto) 0.5 TH/MM3 Eosinophils # (Auto) 0.3 TH/MM3 Basophils # (Auto) 0.0 TH/MM3 CBC Comment DIFF FINAL Differential Comment Laboratory Tests Test 11/14/16 06:40 Sodium Level 141 MEQ/L Potassium Level 3.7 MEQ/L Chloride Level 106 MEQ/L Carbon Dioxide Level 23.9 MEQ/L Anion Gap 11 MEQ/L Blood Urea Nitrogen 20 MG/DL Creatinine 0.83 MG/DL Estimat Glomerular Filtration 94 ML/MIN Rate Random Glucose 122 MG/DL Calcium Level 8.8 MG/DL Microbiology Date/Time Procedure Status Source Growth 11/13/16 12:35 Aerobic Blood Culture - Preliminary Resulted Blood Peripheral NO GROWTH IN 2 DAYS 11/13/16 12:35 Anaerobic Blood Culture - Preliminary Resulted Blood Peripheral NO GROWTH IN 2 DAYS 11/13/16 12:40 Aerobic Blood Culture - Preliminary Resulted Blood Peripheral NO GROWTH IN 2 DAYS 11/13/16 12:40 Anaerobic Blood Culture - Preliminary Resulted Blood Peripheral NO GROWTH IN 2 DAYS 11/13/16 12:40 Gram Stain - Final Complete Wound Toe 11/13/16 12:40 Wound Culture - Final Complete Staphylococcus Aureus 11/15/16 07:18 Gram Stain - Final Resulted Wound Toe 11/15/16 07:18 Wound Culture Resulted Wound Toe Pending 11/15/16 07:18 Acid Fast Stain Received Wound Toe Pending 11/15/16 07:18 Mycobacterial Culture Received Wound Toe Pending 11/15/16 07:18 Fungal Smear - Final Resulted Wound Toe NO FUNGAL ELEMENTS SEEN. 11/15/16 07:18 Fungal Culture Resulted Wound Toe Pending PHYSICAL EXAMINATION GENERAL: No acute distress. HEENT: No icterus. Oropharynx no visible lesions. NECK: Supple without adenopathy. LUNGS: Clear breath sounds HEART: Irregular rate and rhythm. No murmurs, rubs or gallops. EXTREMITIES: The right great toe is post resection. SKIN: No rash. NEUROLOGIC: Nonfocal. PSYCHIATRIC: Pleasant, calm and cooperative. IMPRESSION 1. Osteomyelitis of the right second toe. Status post partial ray amputation. 2. Cellulitis of the right second toe/ foot. Improved. 3. Diabetes mellitus. RECOMMENDATIONS 1. Stop vancomycin 2. Start IV Ancef. Follow the pathology of the surgical specimen. If the margins of the bone is clear he can be treated with PO Keflex x 2 weeks. If the margins is not clear of infection he will need further debridement or IV antibiotics x 6 weeks. Omid Islas MD Nov 15, 2016 18:19
[2016-11-15] MEDS: ceFAZolin 2 GM PREMIX 50 ML IV SCH (20:20)
[2016-11-15] MEDS: TEMAZEPAM 15 MG CAP PO PRN (21:15)
[2016-11-15] MEDS ORDERED: ONDANSETRON HCL 4 MG/2 ML VIAL IV PUSH PRN (23:15)
[2016-11-16] VITALS (7 sets, daily range): BP systolic 114–142; BP diastolic 80–88; PULSE 86–109; RESP 18–20; TEMP 97.2–97.6; O2SAT 94–98
[2016-11-16] MEDS: ceFAZolin 2 GM PREMIX 50 ML IV SCH ×2 (04:58→13:03)
[2016-11-16] MEDS: INSULIN ASPART SUPPLEMENTAL SCALE SQ SCH ×3 (05:15→17:18)
[2016-11-16] MEDS: ISOSORBIDE MONONITRATE 30 MG TAB PO SCH (06:38)
[2016-11-16] MEDS: SACUBITRIL/VALSARTAN 24 MG-26 MG TAB PO SCH (08:54)
[2016-11-16] MEDS: ASPIRIN 81 MG CHEW TAB CHEW SCH (08:54)
[2016-11-16] MEDS: FUROSEMIDE 20 MG TAB PO SCH ×3 (08:54→17:14)
[2016-11-16] MEDS: CARVEDILOL 6.25 MG TAB PO SCH (08:54)
[2016-11-16] MEDS: AMIODARONE 200 MG TAB PO SCH (08:54)
[2016-11-16] MEDS: ACETAMINOPHEN/HYDROcodone 325 MG/5 MG TAB PO PRN (08:55)
[2016-11-16] MEDS: SODIUM CHLORIDE 0.9% FLUSH 10 ML FLUSH IV FLUSH SCH (09:00)
--- NOTE | 2016-11-16 11:06 | MP ---
cc: MARIPOSA POOL M DATE OF SURGERY: 11/15/2016 PREOPERATIVE DIAGNOSIS Right second digit ulcer cellulitis, hammertoe and possible osteomyelitis. POSTOPERATIVE DIAGNOSIS Right second digit ulcer cellulitis, hammertoe and possible osteomyelitis. PROCEDURE PERFORMED Right second digit amputation. INTRAOPERATIVE FINDINGS Clear margins at the disarticulation amputation site clinically. COMPLICATIONS None. SPECIMEN Right second digit for path and deep culture taken for micro at the amputation site. ESTIMATED BLOOD LOSS Less than 10 mL. ANESTHESIA TIVA with local. DRAINS No drains. TOURNIQUET TIME 15 minutes at a setting of 250 mmHg about the patient's right ankle. DISPOSITION PACU then return to floor. CONDITION Fair. JUSTIFICATION FOR PROCEDURE A 60-year-old male with MRI findings consistent with osteomyelitis. The patient needs an AICD. He was actually scheduled to have this two days ago. We devised a plan to move forward with eradication of the infection hoping the patient can move forward quickly with the AICD. Furthermore, the patient had impressive cellulitis, neuropathy and a hammertoe contracture that would likely cause a recurrent ulcer deformity. Digit salvage was discussed as well as digit amputation. The risks of both were reviewed and we opted for digit amputation. No guarantees were given or implied regarding the outcome. Hematoma, recurrent infection and need for more surgery at a later day were all reviewed. PROCEDURE IN DETAIL Under mild sedation the patient was brought into the operating room and placed on the operating table in a supine position. Following the induction of total IV anesthesia, local anesthesia was obtained about the patient's right second digit utilizing standard block fashion with 0.5% Marcaine plain, 10 cc. The patient's foot was then scrubbed, prepped and draped in the usual aseptic fashion. The foot was elevated and exsanguinated, and the previously placed mid ankle tourniquet was inflated at 250 mmHg. A fishmouth incision was made at the base of the second digit. This appeared to be free from cellulitis. This was a full-thickness incision down to periosteum. The joint was then identified. Extensor and flexor tendons were severed as well as the joint capsule, disarticulating the toe. The head of the second metatarsal was visualized. There was hard cortical bone with intact cartilage. There were no signs of microabscess, necrosis or obvious signs of infection at the amputation site. The digit was then passed off the field for pathological analysis. Deep culture was taken at this area being careful not to touch the skin. Bovie and ligation of the neurovascular structures took place in the four corners of the anatomic area of the amputation. The wound was flushed with copious amounts of normal saline. Deep closure took place utilizing Vicryl. Skin was closed utilizing nylon. Upon relieving the tourniquet there was hemostasis at the surgery site with minimal bleeding. The remaining digits 1, 3, 4 and 5 had good capillary fill time. The patient was then transferred from OR to PACU with all vital signs stable. There was slight tachycardia noted, however, this appears to be the patient's baseline. The patient will continue to be monitored on the floor within the next 1-2 days. I anticipate discharge in the next 1-2 days once we have clear cultures and absent cellulitis of the foot. PLAN 1-2 days of IV antibiotics then hopeful transition to p.o. antibiotics. MARIOLA Don/KARRIE /7:41 AM /11:01 AM
--- NOTE | 2016-11-16 13:32 | HHI.DCPOC ---
Discharge Care Plan Diagnosis: (1) Diabetic ulcer of toe (2) Atrial fibrillation with RVR (3) Osteomyelitis (4) HTN (hypertension) (5) Diabetes Goals to Promote Your Health * To prevent worsening of your condition and complications * To maintain your health at the optimal level Directions to Meet Your Goals Take your medications as prescribed Follow your dietary instruction Follow activity as directed Keep your appointments as scheduled Take your immunizations and boosters as scheduled If your symptoms worsen call your PCP, if no PCP go to Urgent Care Center or Emergency Room Smoking is Dangerous to Your Health. Avoid second hand smoke Call the 24-hour hour crisis hotline for domestic abuse at Milton Sunshine DO Nov 16, 2016 13:32
--- NOTE | 2016-11-16 13:36 | HHI.DS ---
Discharge Summary Admission Date Nov 13, 2016 at 14:50 Discharge Date: Nov 16, 2016 Admitting Diagnosis A. fib with RVR, rule out osteomyelitis, diabetic ulcer (1) Diabetic ulcer of toe Diagnosis: Principal (2) Osteomyelitis Diagnosis: Principal (3) Atrial fibrillation with RVR Diagnosis: [facility] Dr. Master Boykin, Podiatry Dr. Omid Bailey, Infectious Disease Brief History Patient is a 60-year-old male presenting to emergency Department for evaluation of possible osteomyelitis. Patient was sent by Dr. Boykin who has been following him due to infection to the right second toe, there is a concern for osteomyelitis and patient states Lucretia wanted an MRI. Over the weekend patient has had increased swelling and streaking up the dorsal aspect of the right foot with swelling to the ankle. Additionally patient was sent to have a defibrillator placed tomorrow with Dr. Boone. Patient denies any fever, chills, chest pain, shortness of breath. He has a history of atrial fibrillation, congestive heart failure, type 2 diabetes, neuropathy, GERD. He was on Coumadin but has been off for several days due to the upcoming surgery. He continues to take a baby aspirin. CBC/BMP: 11/14/16 0546 11/14/16 0640 Significant Findings Laboratory Tests Test 11/14/16 11/14/16 11/15/16 05:46 06:40 06:35 Platelet Count 142 TH/MM3 (150-450) Monocytes (%) (Auto) 8.6 % (0.0-8.0) Eosinophils (%) (Auto) 5.3 % (0.0-4.0) Prothrombin Time 28.1 SEC 27.1 SEC (9.8-11.6) (9.8-11.6) Blood Urea Nitrogen 20 MG/DL (7-18) Random Glucose 122 MG/DL (74-106) Imaging Last Impressions Chest X-Ray 11/13/16 1446 Signed Impressions: Service Date/Time: Sunday, November 13, 2016 15:32 - CONCLUSION: Normal examination. Volodymyr Degroot MD Foot MRI 11/13/16 0000 Signed Impressions: Service Date/Time: Sunday, November 13, 2016 14:52 - CONCLUSION: Abnormal marrow within the second distal phalangeal bone with some edema on the IR images and some marrow replacement on the T1 image suspicious for osteomyelitis. Volodymyr Degroot MD PE at Discharge GENERAL: This is a well-nourished, well-developed patient, in no apparent distress. CARDIOVASCULAR: Regular rate and rhythm without murmurs, gallops, or rubs. RESPIRATORY: Clear to auscultation. Breath sounds equal bilaterally. No wheezes , rales, or rhonchi. GASTROINTESTINAL: Abdomen soft, non-tender, nondistended. Normal active bowel sounds NEURO: Alert & Oriented x4 to person, place, time, situation. Moves all ext x4 ext: right foot wrapped. Hospital Course (1) Diabetic ulcer of toe Status: Acute Plan: - comgmt with ID and podiatry - MRI (11/13/16) --> osteomyelitis right 2nd distal phalanx - vancomycin (11/12 - present) - zosyn (11/12 - 11/14) - Case d/w Dr. Boykin (11/16/16) - amputation of right second toe performed by Dr. Boykin (11/15/16) - case d/w Dr. Omid Bailey (11/16/16) - discharge to home with [facility] for wound care/dressing changes - Keflex 500mg QID x 10d - norco prn pain (2) Osteomyelitis Status: Acute Plan: osteomyleitis as per mri - see above (3) Atrial fibrillation with RVR Status: Chronic Plan: - coumadin, amiodarone, coreg - pt awaiting AICD placement Pt Condition on Discharge: Stable Discharge Disposition: Disch w/ Home Health Serv Discharge Instructions DIET: Follow Instructions for: Diabetic Diet Activities you can perform: Partial Weight Bearing Other Activity Instructions: heel weight bearing only on right foot Follow up Referrals: Podiatry - [address] Master Boykin New Medications: Cephalexin (Keflex) 500 Mg Capsule 500 MG PO QID Infection #40 Ref 0 CAP Docusate Sodium (Colace) 100 Mg Capsule 100 MG PO BID narcotic #60 Ref 0 MG Hydrocodone-Acetaminophen (Hydrocodone-Acetaminophen) 5-325 mg Tab 1 TAB PO Q4HR PRN PAIN SCALE 1-5 #20 Ref 0 TAB Continued Medications: Acarbose (Precose) 50 Mg Tab 50 MG PO TID Take with first bite of meal. TAB Amiodarone (Amiodarone) 200 Mg Tab 200 MG PO DAILY Regulate Heart Beat Ref 0 TAB Aspirin (Aspirin) 81 Mg Chew 81 MG CHEW DAILY Ref 0 TAB Carvedilol (Coreg) 6.25 Mg Tab 6.25 MG PO BID Ref 0 TAB Furosemide (Lasix) 20 Mg Tab 20 MG PO TID Ref 0 TAB Glimepiride (Glimepiride) 4 Mg Tab 4 MG PO DAILY Take with breakfast or first main meal Blood Sugar Management Ref 0 TAB Isosorbide Mononitrate ER (Isosorbide Mononitrate ER) 30 Mg Liliana 30 MG PO DAILY Prevent Chest Pain Ref 0 TAB Metformin (Metformin) 500 Mg Tab 500 MG PO TIDPC With meals Blood Sugar Management Ref 0 TAB Omeprazole (Omeprazole) 10 Mg Cap 10 MG PO DIRECTED PRN REFLUX Ref 0 CAP Sacubitril-Valsartan (Entresto) 24-26 Mg Tab 1 TAB PO BID Heart Failure Ref 0 TAB Warfarin (Coumadin) 7.5 Mg Tab 7.5 MG PO MOTUWETHSA Prevent Blood Clot Ref 0 TAB Warfarin (Coumadin) 10 Mg Tab 10 MG PO SUFR Prevent Blood Clot Ref 0 TAB Milton Sunshine DO Nov 16, 2016 13:36
[2016-11-16] MEDS ORDERED: HYDR-3516 PO (13:40)
[2016-11-16] MEDS ORDERED: COLA100C PO (13:40)
[2016-11-16] MEDS ORDERED: CEPH-460 PO (13:40)
--- NOTE | 2016-11-16 13:43 | HHI.FF ---
Face to Face Verification Diagnosis: (1) Diabetic ulcer of toe (2) HTN (hypertension) (3) Diabetes (4) Atrial fibrillation with RVR Home Health Nursing Order: Medical education Signs/symptoms of disease process Diabetic education Medication education-adverse effect Wound care and dressing changes Nursing assessment with vital signs Instructions: Dressing changes per Podiatry specifications Obtain INR on 11/19/16 and send results to PCP Dr. Chaz Kaufman I have seen patient Edwin sEtrada Jr Mario on 11/16/16. My clinical findings support the need for the requested home health care services because: Ltd mobility - disease progression Deconditioned w/ increased weakness Med compliance is questionable Need for psychosocial assistance I certify that my clinical findings support that this patient is homebound because: Unsafe to leave home unassisted Need for psychosocial assistance Unable to use public transportation Milton Sunshine DO Nov 16, 2016 13:43
--- NOTE | 2016-11-16 13:46 | HHI.IDPN ---
Note Infectious Disease Note Patient without complaints. Had nausea and vomiting and sweats with Dilaudid. Afebrile. No significant pain in r. foot. PAST MEDICAL HISTORY 1. Diabetes mellitus diagnosed three years ago, 2. Atrial fibrillation 3. Congestive heart failure, 4. Gastroesophageal reflux disease, 5. Hypertension, 6. Peripheral neuropathy, 7. History of left inguinal and umbilical hernia repair 8. History of removal of a growth on the right kidney. ALLERGIES NO KNOWN DRUG ALLERGIES. OBJECTIVE: Vital Signs Date Time Temp Pulse Resp B/P Pulse Ox O2 Delivery O2 Flow Rate FiO2 11/16/16 10:04 18 11/16/16 08:00 97.6 96 20 114/84 95 11/16/16 04:00 Room Air 11/16/16 04:00 97.4 97 18 120/80 96 11/16/16 00:00 97.5 95 18 140/80 94 11/16/16 00:00 Room Air 11/15/16 20:00 Room Air 11/15/16 20:00 97.6 113 18 160/90 98 11/15/16 19:30 100 11/15/16 16:31 97.9 90 18 138/85 96 Microbiology Date/Time Procedure Status Source Growth 11/15/16 07:18 Gram Stain - Final Resulted Wound Toe 11/15/16 07:18 Wound Culture - Preliminary Resulted Wound Toe NO GROWTH IN 24 HOURS. 11/15/16 07:18 Acid Fast Stain Received Wound Toe Pending 11/15/16 07:18 Mycobacterial Culture Received Wound Toe Pending 11/15/16 07:18 Fungal Smear - Final Resulted Wound Toe NO FUNGAL ELEMENTS SEEN. 11/15/16 07:18 Fungal Culture Resulted Wound Toe Pending PHYSICAL EXAMINATION GENERAL: No acute distress. HEENT: No icterus. NECK: Supple without adenopathy. LUNGS: Breath sounds clear. HEART: Irregular rate and rhythm. No murmurs, rubs or gallops. EXTREMITIES: The right 2nd toe is post resection. incision looks good. decreased erythema at the dorsum of the foot along previous streak. very mild. SKIN: No rash. NEUROLOGIC: Nonfocal. PSYCHIATRIC: Pleasant, calm and cooperative. IMPRESSION 1. Osteomyelitis of the right second toe. Status post partial ray amputation. Resection of involved bone. 2. Cellulitis of the right second toe/ foot. Improved. 3. Diabetes mellitus. RECOMMENDATIONS Stop IV antibiotic. Okay to discharge with PO Keflex x 10 days. He will be following up with Dr. Boykin. D/W Dr. Sunshine. Omid Islas MD Nov 16, 2016 13:46
--- NOTE | 2016-11-16 13:58 | PD.POD ---
Subjective Pain score: 4 Remarks doing well, had N V with dilaudid last night Past Med/Surg/Social History Social History Smoking Status: Never Smoker Objective Vital Signs Vital Signs Date Time Temp Pulse Resp B/P Pulse Ox O2 Delivery O2 Flow Rate FiO2 11/16/16 12:05 97.2 105 18 137/88 96 11/16/16 10:04 18 11/16/16 08:00 97.6 96 20 114/84 95 11/16/16 04:00 Room Air 11/16/16 04:00 97.4 97 18 120/80 96 11/16/16 00:00 97.5 95 18 140/80 94 11/16/16 00:00 Room Air 11/15/16 20:00 Room Air 11/15/16 20:00 97.6 113 18 160/90 98 11/15/16 19:30 100 11/15/16 16:31 97.9 90 18 138/85 96 Coded Allergies: No Known Allergies (Verified , 11/13/16) Medications and IVs Administered Medications Medications (Trade) Dose Ordered Sig/Jason Route PRN Reason Start Time Stop Time Status Last Admin Dose Admin Sodium Chloride (NS Flush) 2 ml BID IV FLUSH 11/13/16 21:00 11/16/16 09:00 Temazepam (Restoril) 15 mg HS PRN PO INSOMNIA 11/13/16 15:00 11/15/16 21:15 Amiodarone HCl (Cordarone) 200 mg DAILY PO 11/14/16 09:00 11/16/16 08:54 Aspirin (Aspirin Chew) 81 mg DAILY CHEW 11/14/16 09:00 11/16/16 08:54 Carvedilol (Coreg) 6.25 mg BID PO 11/13/16 21:00 11/16/16 08:54 Furosemide (Lasix) 20 mg TID PO 11/13/16 18:00 11/16/16 13:03 Isosorbide Mononitrate (Imdur) 30 mg DAILY@07 PO 11/14/16 07:00 11/15/16 09:09 Sacubitril/ Valsartan (Entresto 24-26 Mg) 1 tab BID PO 11/13/16 21:00 11/16/16 08:54 Warfarin Sodium (Coumadin) 7.5 mg MOTUWETHSA PO 11/13/16 16:00 11/15/16 17:54 Acetaminophen/ Hydrocodone Bitart ([place] 5-325 Mg) 1 tab Q6H PRN PO PAIN SCALE 1-5 11/15/16 10:15 11/16/16 08:55 Hydromorphone HCl 0.5 mg 0.5 mg Q6H PRN IV PAIN SCALE 6-10 11/15/16 10:15 11/15/16 20:19 Cefazolin Sodium/ Dextrose (Ancef 2 Gm Premix) 50 ml @ 100 mls/hr Q8H IV 11/15/16 20:00 11/16/16 13:03 Ondansetron HCl (Zofran Inj) 4 mg Q6H PRN IV PUSH NAUSEA OR VOMITING 11/15/16 23:15 11/15/16 23:12 Other Results Microbiology Date/Time Procedure Status Source Growth 11/15/16 07:18 Gram Stain - Final Resulted Wound Toe 11/15/16 07:18 Wound Culture - Preliminary Resulted Wound Toe NO GROWTH IN 24 HOURS. 11/15/16 07:18 Acid Fast Stain Received Wound Toe Pending 11/15/16 07:18 Mycobacterial Culture Received Wound Toe Pending 11/15/16 07:18 Fungal Smear - Final Resulted Wound Toe NO FUNGAL ELEMENTS SEEN. 11/15/16 07:18 Fungal Culture Resulted Wound Toe Pending Physical Exam Remarks right foot with 2nd digit amp site coapted with no ischemic changes, moderate edema and some redness remains. good CFT remaining digits, sensation decreased. Assessment & Plan A/P Right 2nd digit OM ulcer hammertoe. SP 2nd digit amp. Neg 24hrs surgical Cx, woundcare ordered out pt, ok to FU 1 week. Heel WB ok with post shoe, reviewed case with ID and Medicine. Master Boykin DPM Nov 16, 2016 13:58
[2016-11-16] MEDS ORDERED: WARFARIN SOD 10 MG TAB PO SCH (16:00)
[2016-11-16] MEDS ORDERED: GETGO ROLLING W1 MI1 (16:27)
== END 2016-11-16 18:30 | disposition home health service (06) | DRG 617 ==
LOC: NEPE 11:55 → NEDA 14:50 → N04B 22:25
PROVIDERS: ADMIT Hospitalist; ATTEND Hospitalist
PROC: 0Y6R0Z0 Detachment at Right 2nd Toe, Complete, Open Approach (ICD-10-PCS; principal; 2016-11-15 06:49)
DX: E11.69 Type 2 diabetes mellitus with other specified complication (principal); M86.9 Osteomyelitis, unspecified; I11.0 Hypertensive heart disease with heart failure; I50.9 Heart failure, unspecified; E11.42 Type 2 diabetes mellitus with diabetic polyneuropathy; E11.621 Type 2 diabetes mellitus with foot ulcer; I48.91 Unspecified atrial fibrillation; K21.9 Gastro-esophageal reflux disease without esophagitis; L97.519 Non-pressure chronic ulcer of other part of right foot with unspecified severity; M20.41 Other hammer toe(s) (acquired), right foot; L03.031 Cellulitis of right toe; B95.61 Methicillin susceptible Staphylococcus aureus infection as the cause of diseases classified elsewhere; E11.65 Type 2 diabetes mellitus with hyperglycemia; Z79.01 Long term (current) use of anticoagulants; Z79.4 Long term (current) use of insulin; Z79.84 Long term (current) use of oral hypoglycemic drugs
CPT/HCPCS: 71010; 73720; 80048; 80053; 82550; 82948; 83735; 83880; 84484; 85025; 85610; 85652; 86140; 86403; 87015; 87040; 87070; 87102; 87116; 87147; 87186; 87205; 87206; 88305; 88311; 93005; 96374; A9579; J0690; J1170; J1815; J2250; J2405; J2543; J3370; J7050